=== PATIENT | female | born 1980 | race Caucasian/White ===

== ENCOUNTER 2019-07-20 05:31 | Emergency (ER) | payer OTHER ==
--- NOTE | 2019-07-20 05:43 | ED Physician Documentation ---
PD HPI HEENT - Stated complaint Stated Complaint: SWOLLEN THROAT/FEVER - Chief complaint Chief Complaint: Heent - History obtained from History obtained from: Patient - History of Present Illness Timing - onset: How many weeks ago (1) Location: Throat Improves: Nothing Worsens: Swalllowing Associated symptoms: Fever (subjective (did not take temperature at home, but feels as if she's been having fevers with sweats/chills)), Congestion, Headache (mild, generalized), Other (post-nasal drip) Recently seen: Not recently seen - Additional information Additional information: c/o 1 week of sinus congestion and cough. since last night, she has had increasing cough and sore throat, chills and sweats, feels as if she is having fevers (has not taken temperature at home) Review of Systems Constitutional: reports: Fever (subjective), Chills, Myalgias, Sweats Ears: denies: Ear pain Nose: reports: Congestion Throat: reports: Sore throat Cardiac: reports: Reviewed and negative Respiratory: reports: Cough. denies: Dyspnea, Wheezing GI: reports: Reviewed and negative Skin: denies: Rash PD PAST MEDICAL HISTORY - Past Medical History Past Medical History: No - Past Surgical History Past Surgical History: Yes - Present Medications Home Medications: Ambulatory Orders Medication Instructions Recorded Confirmed Venlafaxine ER [Effexor ER] 150 mg PO DAILY 05/11/13 07/20/19 - Allergies Allergies/Adverse Reactions: Allergies Allergy/AdvReac Type Severity Reaction Status Date / Time amoxicillin trihydrate * Allergy Hives Verified 07/20/19 05:38 [From Augmentin] potassium clavulanate * Allergy Hives Verified 07/20/19 05:38 [From Augmentin] ondansetron HCl * AdvReac Anxiety Verified 07/20/19 05:38 [From Zofran] - Living Situation Living Arrangement: reports: At home - Social History Does the pt smoke?: No Smoking Status: Never smoker Does the pt drink ETOH?: No Does the pt have substance abuse?: No - Immunizations Immunizations are current?: No Immunizations: TDAP >10years/unknown - POLST Patient has POLST: No PD ED PE NORMAL - Vitals Vital signs reviewed: Yes - General General: Alert and oriented X 3, No acute distress, Well developed/nourished - HEENT HEENT: Moist mucous membranes, Other (mild posterior o/p erythema without edema. post-nasal drip noted (thick green mucous in posterior o/p)) - Neck Neck: Supple, no meningeal sign - Cardiac Cardiac: No murmur - Respiratory Respiratory: No respiratory distress, Clear bilaterally - Abdomen Abdomen: Soft, Non tender - Derm Derm: Normal color, Warm and dry PD ED PE EXPANDED - Cardiac Cardiac: Tachy, Regular Rhythm Results - Vitals Vitals: Vital Signs - 24 hr 07/20/19 07/20/19 05:35 06:35 Temperature 37.8 C H 37.1 C Heart Rate 140 H 140 H Respiratory 18 16 Rate Blood Pressure 141/93 H 114/68 O2 Saturation 100 99 Oxygen O2 Source Room air - Labs Labs: Laboratory Tests 07/20/19 05:40 Group A Strep Rapid Negative PD MEDICAL DECISION MAKING - ED course Complexity details: reviewed results, re-evaluated patient, considered differential, d/w patient ED course: rapid strep result is negative and patient is in NAD. lungs are CTA bilaterally. she has significant tachycardia but she says she has h/o tachycardia for which she has seen cardiology and was not given specific diagnosis. She does not feel dyspneic nor palpitations. She appears well hydrated and describes tolerating PO without difficulty. Departure - Departure Disposition: 01 Home, Self Care Clinical Impression: Viral syndrome Condition: Good Instructions: ED Pharyngitis Viral Report Pending, ED Viral Syndrome Discharge Date/Time: 07/20/19 06:35
[2019-07-20 06:10] LABS: RAPID STREP SCREEN Negative (Negative)
[2019-07-20 06:41] VITALS: BP 114/68
== END 2019-07-20 06:35 | disposition home or self-care (01) ==
LOC: ED 05:31
DX: B34.9 Viral infection, unspecified (principal); R09.82 Postnasal drip; R00.0 Tachycardia, unspecified
CPT/HCPCS: 87070; 87430; 99284

== ENCOUNTER 2019-07-20 12:24 | Emergency (ER) | payer OTHER ==
[2019-07-20] MEDS ORDERED: KETOROLAC 30 MG/ML VIAL IVP STA (12:32)
[2019-07-20] MEDS ORDERED: SODIUM CHLORIDE 0.9% 2,000 ML IV ONE (12:32)
[2019-07-20] MEDS ORDERED: PROMETHAZINE INJ 25 MG in SODIUM CHLORIDE 0.9% 50 ML IV STA (12:32)
[2019-07-20] MEDS ORDERED: DEXAMETHASONE 10 MG/ML VIAL IVP STA (12:49)
[2019-07-20 12:53] LABS: BASOPHILS # (AUTO) 0.1 10^3/uL (0.0-0.1); BASOPHILS % (AUTO) 0.4 %; EOSINOPHILS % (AUTO) 0.2 %; HGB - HEMOGLOBIN 13.5 g/dL (12.0-16.0); LYMPHOCYTES # (AUTO) 1.2 10^3/uL (1.5-3.5); LYMPHOCYTES % (AUTO) 5.5 %; MEAN CORPUSCULAR HEMOGLOBIN 29.8 pg (27.0-31.0); MEAN CORPUSCULAR HGB CONC 34.1 g/dL (32.0-36.0); MEAN CORPUSCULAR VOLUME 87.4 fL (81.0-99.0); MEAN PLATELET VOLUME 9.7 fL (7.9-10.8); MONOCYTES # (AUTO) 0.8 10^3/uL (0.0-1.0); MONOCYTES % (AUTO) 3.4 %; NEUTROPHILS # (AUTO) 20.1 10^3/uL (1.5-6.6); NEUTROPHILS % (AUTO) 89.9 %; PLT - PLATELET COUNT 299 10^3/uL (130-450); RED BLOOD COUNT 4.53 10^6/uL (4.20-5.40); RED CELL DISTRIBUTION WIDTH 13.2 % (12.0-15.0); WHITE BLOOD COUNT 22.4 x10^3/uL (4.8-10.8)
--- NOTE | 2019-07-20 12:55 | ED Physician Documentation ---
History of Present Illness - Stated complaint Stated Complaint: RIVERA/NAUSEA - Chief complaint Chief Complaint: General - History obtained from History obtained from: Patient, Family - History of Present Illness Timing: Today Pain level max: 8 Pain level now: 8 - Additonal information Additional information: 38-year-old female was seen here this morning for a sore throat. Diagnosed with viral pharyngitis. Rapid strep is negativeShe went home and developed a headache. She states that she often has headaches. She took allergy medication without relief. No fevers. Did have vomiting. Patient also had diarrhea this morning. Worse with light and sound. Better with rest. Patient is not , breast-feeding or trying to become . Review of Systems Ten Systems: 10 systems reviewed and negative Constitutional: denies: Fever, Chills Eyes: reports: Photophobia Ears: denies: Ear pain Nose: denies: Rhinorrhea / runny nose, Congestion Throat: reports: Sore throat Cardiac: denies: Chest pain / pressure, Palpitations Respiratory: reports: Cough GI: reports: Nausea, Vomiting, Diarrhea. denies: Abdominal Pain, Hematemesis, Bloody / black stool : denies: Dysuria, Frequency, Hesitancy, Now EGA Skin: denies: Rash Musculoskeletal: denies: Neck pain, Back pain Neurologic: reports: Headache (Holoacranial, gradual onset. Similar to prior headaches). denies: Seizure, Confused PD PAST MEDICAL HISTORY - Past Medical History Past Medical History: Yes Neuro: Migraines Psych: Depression, Anxiety - Past Surgical History Past Surgical History: Yes - Present Medications Home Medications: Ambulatory Orders Medication Instructions Recorded Confirmed Venlafaxine ER [Effexor ER] 150 mg PO DAILY 05/11/13 07/20/19 Promethazine [Phenergan] 25 mg PO Q6H PRN #10 tab 07/20/19 - Allergies Allergies/Adverse Reactions: Allergies Allergy/AdvReac Type Severity Reaction Status Date / Time amoxicillin trihydrate * Allergy Hives Verified 07/20/19 12:27 [From Augmentin] potassium clavulanate * Allergy Hives Verified 07/20/19 12:27 [From Augmentin] ondansetron HCl * AdvReac Anxiety Verified 07/20/19 12:27 [From Zofran] - Social History Does the pt smoke?: No Smoking Status: Never smoker Does the pt drink ETOH?: No Does the pt have substance abuse?: No - Immunizations Immunizations are current?: No Immunizations: TDAP >10years/unknown - POLST Patient has POLST: No PD ED PE NORMAL - Vitals Vital signs reviewed: Yes - General General: Alert and oriented X 3, No acute distress, Well developed/nourished - HEENT HEENT: Atraumatic, PERRL, EOMI, Ears normal, Moist mucous membranes, Pharynx benign, Other (no papilledema) - Neck Neck: Supple, no meningeal sign, Other (FROM of the neck, no pain) - Cardiac Cardiac: RRR, Strong equal pulses - Respiratory Respiratory: No respiratory distress, Clear bilaterally - Abdomen Abdomen: Soft, Non tender, Non distended - Derm Derm: Warm and dry, No rash - Neuro Neuro: Alert and oriented X 3, 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, No motor deficit, No sensory deficit, Normal speech - Psych Psych: Normal mood, Normal affect Results - Vitals Vitals: Vital Signs - 24 hr 07/20/19 07/20/19 12:27 14:07 Temperature 37.2 C Heart Rate 124 H 110 H Respiratory 20 16 Rate Blood Pressure 134/91 H 123/89 H O2 Saturation 98 97 Oxygen O2 Source Room air - Labs Labs: Laboratory Tests 07/20/19 07/20/19 07/20/19 12:40 12:40 13:41 WBC 22.4 H RBC 4.53 Hgb 13.5 Hct 39.6 MCV 87.4 MCH 29.8 MCHC 34.1 RDW 13.2 Plt Count 299 MPV 9.7 Neut # (Auto) 20.1 H Lymph # (Auto) 1.2 L Mayes # (Auto) 0.8 Eos # (Auto) 0.0 Baso # (Auto) 0.1 Absolute Nucleated RBC 0.00 Nucleated RBC % 0.0 Manual Slide Review Indicated Platelet Estimate NORMAL (130-450,000) Platelet Morphology NORMAL APPEARANCE RBC Morph Micro Appear NORMAL APPEARANCE Sodium 135 Potassium 3.6 Chloride 102 Carbon Dioxide 23 Anion Gap 10.0 BUN 13 Creatinine 0.7 Estimated GFR (MDRD) 94 Glucose 131 H Calcium 9.0 Total Bilirubin 0.9 AST 22 ALT 20 Alkaline Phosphatase 60 Total Protein 7.7 Albumin 4.2 Globulin 3.5 Albumin/Globulin Ratio 1.2 Lipase 24 Urine Color YELLOW Urine Clarity CLEAR Urine pH 6.5 Ur Specific [place] 1.020 Urine Protein NEGATIVE Urine Glucose (UA) NEGATIVE Urine Ketones NEGATIVE Urine Occult Blood NEGATIVE Urine Nitrite NEGATIVE Urine Bilirubin NEGATIVE Urine Urobilinogen 0.2 (NORMAL) Ur Leukocyte Esterase NEGATIVE Ur Microscopic Review NOT INDICATED Urine Culture Comments NOT INDICATED Urine HCG, Qual NEGATIVE PD MEDICAL DECISION MAKING - ED course Complexity details: considered differential, d/w patient ED course: Patient with what appears to be a viral syndrome complicated by a headache today. Given Toradol, Phenergan, dexamethasone and IV fluids. Headache improved. No evidence of subarachnoid hemorrhage. No evidence of meningitis or encephalitis. Patient feels much better. We will continue supportive care at home. Patient counseled regarding signs and symptoms for which I believe and urgent re-evaluation would be necessary. Patient with good understanding of and agreement to plan and is comfortable going home at this time This document was made in part using voice recognition software. While efforts are made to proofread this document, sound alike and grammatical errors may occur. Departure - Departure Disposition: 01 Home, Self Care Clinical Impression: Viral syndrome Headache Qualifiers: Headache type: unspecified Headache chronicity pattern: acute headache Intractability: not intractable Qualified Code(s): R51 - Headache Condition: Good Instructions: ED Viral Syndrome, ED Headache Migraine Follow-Up: your,doctor in 1 week [Other] Prescriptions: Promethazine [Phenergan] 25 mg PO Q6H PRN #10 tab PRN Reason: Nausea / Vomiting Comments: Go home and rest. Drink plenty of fluids. Follow-up with your doctor for further care.
[2019-07-20 13:01] LABS: ALBUMIN 4.2 g/dL (3.2-5.5); ALBUMIN/GLOBULIN RATIO 1.2 (1.0-2.2); BILIRUBIN,TOTAL 0.9 mg/dL (0.2-1.0); CREATININE 0.7 mg/dL (0.4-1.0); TOTAL PROTEIN 7.7 g/dL (6.7-8.2)
[2019-07-20 13:17] LABS: PLATELET ESTIMATE, MANUAL NORMAL (130-450,000) (NORMAL); PLATELET MORPHOLOGY NORMAL APPEARANCE (NORMAL); RBC MORPHOLOGY (MULTIPLE) NORMAL APPEARANCE (NORMAL)
[2019-07-20 14:00] LABS: BILIRUBIN,URINE NEGATIVE (NEGATIVE); GLUCOSE, URINE (UA) NEGATIVE (NEGATIVE); KETONES,URINE (UA) NEGATIVE (NEGATIVE); LEUKOCYTE ESTERASE, URINE NEGATIVE (NEGATIVE); NITRITE,URINE NEGATIVE (NEGATIVE); OCCULT BLOOD,URINE NEGATIVE (NEGATIVE); PH,URINE 6.5 PH (5.0-7.5); PROTEIN,URINE NEGATIVE (NEGATIVE); UROBILINOGEN,URINE 0.2 (NORMAL) E.U./dL (NORMAL)
[2019-07-20 14:02] LABS: CLARITY,URINE CLEAR (CLEAR); HCG UR QUAL NEGATIVE
[2019-07-20 14:11] VITALS: BP 123/89
== END 2019-07-20 14:31 | disposition home or self-care (01) ==
LOC: ED 12:24
DX: B34.9 Viral infection, unspecified (principal); R51 Headache; R09.82 Postnasal drip; R00.0 Tachycardia, unspecified
CPT/HCPCS: 36415; 80053; 81003; 81025; 83690; 85025; 87070; 87430; 96361; 96365; 96375; 99284; J7040; 81001; 87086

== ENCOUNTER 2021-08-05 09:25 | Emergency (ER) | payer OTHER ==
[2021-08-05 09:47] VITALS: BP 130/104
--- NOTE | 2021-08-05 09:59 | ED Physician Documentation ---
PD HPI HEENT - Stated complaint Stated Complaint: C+ SORE THROAT - Chief complaint Chief Complaint: Heent - History obtained from History obtained from: Patient - Additional information Additional information: Patient comes to the emergency department chief complaint of sore throat. She states that she has had cold-like symptoms for the last 4 days and tested positive for COVID 2 days ago. The patient states that the rest of her symptoms are doing fine; she states she had a mild fever the first night and that this then resolved, but she has had a sore throat for the last couple of days. The patient states that she gets strep throat every year and wonders if she has strep throat on top of the COVID. Patient denies any abdominal pain. No shortness of breath. Minimal cough. No other complaints at this time. Review of Systems Ten Systems: 10 systems reviewed and negative Constitutional: reports: Reviewed and negative Eyes: reports: Reviewed and negative Ears: reports: Reviewed and negative Nose: reports: Rhinorrhea / runny nose, Congestion Throat: reports: Sore throat Cardiac: reports: Reviewed and negative Respiratory: reports: Reviewed and negative GI: reports: Reviewed and negative : reports: Reviewed and negative Skin: reports: Reviewed and negative Musculoskeletal: reports: Reviewed and negative Neurologic: reports: Reviewed and negative Psychiatric: reports: Reviewed and negative Endocrine: reports: Reviewed and negative Immunocompromised: reports: Reviewed and negative PD PAST MEDICAL HISTORY - Past Medical History Neuro: Migraines Psych: Depression, Anxiety - Past Surgical History Past Surgical History: Yes - Present Medications Home Medications: Ambulatory Orders Medication Instructions Recorded Confirmed Venlafaxine ER [Effexor ER] 150 mg PO DAILY 05/11/13 07/20/19 Promethazine [Phenergan] 25 mg PO Q6H PRN #10 tab 07/20/19 - Allergies Allergies/Adverse Reactions: Allergies Allergy/AdvReac Type Severity Reaction Status Date / Time amoxicillin trihydrate * Allergy Hives Verified 07/20/19 12:27 [From Augmentin] potassium clavulanate * Allergy Hives Verified 07/20/19 12:27 [From Augmentin] ondansetron HCl * AdvReac Unknown Verified 08/05/21 09:48 [From Zofran] - Social History Does the pt smoke?: No Smoking Status: Never smoker Does the pt drink ETOH?: No Does the pt have substance abuse?: No - Immunizations Immunizations are current?: No Immunizations: TDAP >10years/unknown - POLST Patient has POLST: No PD ED PE NORMAL - Vitals Vital signs reviewed: Yes - General General: Alert and oriented X 3, No acute distress, Well developed/nourished - HEENT HEENT: Atraumatic, PERRL, EOMI, Moist mucous membranes, Other (Single tiny patch of exudate on left superior tonsil. No enlargement. 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 She preferred to go home and be notified at home with the results, and I felt this was reasonable. The plan will be that if the patient test positive for strep, I will contact her at home and send in a prescription for antibiotics to the [facility] pharmacy for her. If negative, the patient understands she will not be contacted, but she already has a patient portal access set up on our website and knows how to look for her results. We have otherwise discussed symptomatic management at home and the usual indications for return. Update: Patient tested negative for strep. Departure - Departure Disposition: 01 Home, Self Care Clinical Impression: COVID Pharyngitis Qualifiers: Pharyngitis/tonsillitis etiology: unspecified etiology Qualified Code(s): J02.9 - Acute pharyngitis, unspecified Condition: Stable Instructions: ED Strep Pharyngitis Poss, ED Viral Syndrome Comments: At this point in time, your strep test is pending. Your throat does not look extremely convincing for strep, but it is possible that you have this on top of your viral infection, since you do get frequently and you do have a small white patch on your left tonsil. We have sent a strep test today to try to sort this out for you. If the test is positive for strep, we will call you at home and a prescription will be sent for antibiotics to the [facility] pharmacy. If the test is negative, you will not receive a call at home, but you may use your patient portal account on the [employer] website to monitor for your test results for confirmation. As far as the COVID, you should continue to quarantine until your symptoms have resolved. Discharge Date/Time: 08/05/21 10:14
[2021-08-05 10:31] LABS: RAPID STREP SCREEN Negative (Negative)
--- NOTE | 2021-08-07 16:55 | ED Physician Documentation ---
ED Addendum - Addendum Addendum: 08/07/21 16:54 Throat culture has resulted positive for group C strep. Patient will be started on Keflex 500 mg p.o. twice daily for 10 days. No pharmacy was listed in the computer thus I asked nursing staff to call the patient to notify the positive result and call in medication to preferred pharmacy.
== END 2021-08-05 10:14 | disposition home or self-care (01) ==
LOC: ED 09:25
DX: U07.1 COVID-19 (principal); J02.9 Acute pharyngitis, unspecified; J02.0 Streptococcal pharyngitis; B95.4 Other streptococcus as the cause of diseases classified elsewhere
CPT/HCPCS: 87070; 87077; 87430; 99282; 99283

== ENCOUNTER 2022-07-08 14:49 | Emergency (ER) | payer OTHER ==
[2022-07-08 17:09] LABS: B. PARAPERTUSSIS- RESP PCR PAN NOT DETECTED; B. PERTUSSIS- RESP PCR PANEL NOT DETECTED; C. PNEUMONIAE- RESP PCR PANEL NOT DETECTED; CORONAVIRUS 229E-RESP PCR NOT DETECTED; CORONAVIRUS HKU1-RESP PCR NOT DETECTED; CORONAVIRUS NL63-RESP PCR NOT DETECTED; CORONAVIRUS OC43-RESP PCR NOT DETECTED; HUMAN METAPNEUMOVIRUS NOT DETECTED; INFLUENZA A H1 2009- RESP PCR DETECTED; INFLUENZA B - RESP PCR PANEL NOT DETECTED; M. PNEUMONIAE- RESP PCR PANEL NOT DETECTED; PARAINFLUENZA VIRUS 1 NOT DETECTED; PARAINFLUENZA VIRUS 2 NOT DETECTED; PARAINFLUENZA VIRUS 3 NOT DETECTED; PARAINFLUENZA VIRUS 4 NOT DETECTED; RHINOVIRUS/ENTEROVIRUS NOT DETECTED; RSV- RESP PCR PANEL NOT DETECTED; SARS-CoV-2 -RESP PCR PANEL NOT DETECTED
--- NOTE | 2022-07-08 17:18 | ED Physician Documentation ---
PD HPI URI - Stated complaint Stated Complaint: HIGH HR - Chief complaint Chief Complaint: General - History obtained from History obtained from: Patient - History of Present Illness Timing - onset: Today, Yesterday (Onset yesterday of body aches, cough, fevers and general weakness. Noted her heart rate fast today into the 1 20-1 30 range. Denied vomiting or diarrhea.) Timing duration: Days (2) Timing details: Abrupt onset, Still present Associated symptoms: Fever, Chills, Nasal congestion, Dry cough Contributing factors: No: Sick contact, Immunocompromised Similar symptoms before: Has not had sx before Review of Systems Constitutional: reports: Fever Nose: reports: Rhinorrhea / runny nose, Congestion Cardiac: reports: Palpitations (feeling heart going fast.) Respiratory: reports: Cough GI: reports: Nausea. denies: Vomiting, Diarrhea Skin: denies: Rash Neurologic: reports: Generalized weakness, Headache. denies: Confused, Altered mental status PD PAST MEDICAL HISTORY - Past Medical History Cardiovascular: None Respiratory: None Neuro: Migraines Psych: Depression, Anxiety - Past Surgical History Past Surgical History: Yes - Present Medications Home Medications: Ambulatory Orders Medication Instructions Recorded Confirmed Venlafaxine ER [Effexor ER] 150 mg PO DAILY 05/11/13 07/08/22 Oseltamivir [Tamiflu] 75 mg PO BID #10 cap 07/08/22 - Allergies Allergies/Adverse Reactions: Allergies Allergy/AdvReac Type Severity Reaction Status Date / Time amoxicillin trihydrate * Allergy Hives Verified 07/08/22 15:22 [From Augmentin] potassium clavulanate * Allergy Hives Verified 07/08/22 15:22 [From Augmentin] ondansetron HCl * AdvReac Unknown Verified 07/08/22 15:22 [From Zofran] - Social History Does the pt smoke?: No Smoking Status: Never smoker Does the pt drink ETOH?: No Does the pt have substance abuse?: No - Immunizations Immunizations are current?: No Immunizations: TDAP >10years/unknown - POLST Patient has POLST: No PD ED PE NORMAL - Vitals Vital signs reviewed: Yes (heart rate fast but regular. ) - General General: Alert and oriented X 3, No acute distress, Well developed/nourished - HEENT HEENT: Moist mucous membranes, Pharynx benign - Neck Neck: Supple, no meningeal sign, No adenopathy - Cardiac Cardiac: No murmur. No: RRR (regular but tachycardic. ) - Respiratory Respiratory: Clear bilaterally - Abdomen Abdomen: Soft, Non tender - Derm Derm: Normal color, Warm and dry, No rash Results - Vitals Vitals: Oxygen O2 Source Room air - Labs Labs: Laboratory Tests 07/08/22 15:26 Nasal Adenovirus (PCR) NOT DETECTED Nasal B. parapertussis DNA (PCR) NOT DETECTED Nasal Coronavir 229E PCR NOT DETECTED Nasal Coronavir HKU1 PCR NOT DETECTED Nasal Coronavir NL63 PCR NOT DETECTED Nasal Coronavir OC43 PCR NOT DETECTED Nasal Enterovir/Rhinovir PCR NOT DETECTED Nasal Influ A H1 2009 PCR DETECTED A Nasal Influenza B PCR NOT DETECTED Nasal Parainfluen 1 PCR NOT DETECTED Nasal Parainfluen 2 PCR NOT DETECTED Nasal Parainfluen 3 PCR NOT DETECTED Nasal Parainfluen 4 PCR NOT DETECTED Nasal RSV (PCR) NOT DETECTED Nasal B.pertussis DNA PCR NOT DETECTED Nasal C.pneumoniae (PCR) NOT DETECTED [place] Human Metapneumo PCR NOT DETECTED Nasal M.pneumoniae (PCR) NOT DETECTED Nasal SARS-CoV-2 (PCR) NOT DETECTED PD Medical Decision Making - ED course Complexity details: reviewed results, considered differential (sounds flu-like symptoms and has fast heart rate but appears well/nonseptic. ), d/w patient Departure - Departure Disposition: 01 Home, Self Care Clinical Impression: Tachycardia, Influenza A Condition: Stable Record reviewed to determine appropriate education?: Yes Instructions: ED Flu Follow-Up: CELINE CHEW PA-C [Primary Care Provider] - Prescriptions: Oseltamivir [Tamiflu] 75 mg PO BID #10 cap Comments: You do test positive for influenza A which could certainly account for your fevers, cough, body aches and presume the fast heart rate. Try to stay well- hydrated. Continue with Tylenol or ibuprofen or both if needed for fevers and aches. We can use the Tamiflu twice daily for 5 days to help try to blunt the degree of symptoms. I transmitted prescription to your preferred pharmacy. I would anticipate symptoms continuing for about 3 to 5 days most commonly in the last even up to 7 to 10 days. Discharge Date/Time: 07/08/22 17:51
[2022-07-08] MEDS ORDERED: OSELTAMIVIR 75 MG CAPSULE PO STA (17:31)
[2022-07-08] MEDS ORDERED: ACETAMINOPHEN 325 MG TABLET PO STA (17:31)
[2022-07-08 17:51] VITALS: BP 128/98
== END 2022-07-08 17:51 | disposition home or self-care (01) ==
LOC: ED 14:49
DX: J10.1 Influenza due to other identified influenza virus with other respiratory manifestations (principal); Z20.822 Contact with and (suspected) exposure to COVID-19
CPT/HCPCS: 87633; 93005; 99282; 99283; A9270